=== PATIENT | female | born 1980 ===

== ENCOUNTER 2018-12-01 02:21 | Emergency (ER) | payer MEDICAID ==
[2018-12-01 02:44] VITALS: BP 160/85
[2018-12-01 03:06] LABS: Bilirubin,Urine NEG (Negative); Blood,Urine MOD (Negative); Color,Urine Yellow (Yellow); Mucus,Urine FEW /HPF; Urobilinogen,Urine < 2.0 mg/dL (<2.0); WBC,Urine > 182.0 /HPF (0.0-6.0)
[2018-12-01 03:07] LABS: HCG Qualitative,Urine Negative (Negative)
[2018-12-01] MEDS ORDERED: ZOFRAN ODT PO ONE (04:31)
[2018-12-01] MEDS ORDERED: XYLOCAINE 1% MPF 5 mL INFILTRATI ONE (04:31)
[2018-12-01] MEDS ORDERED: PYRIDIUM PO ONE (04:31)
[2018-12-01] MEDS ORDERED: IBUPROFEN PO ONE (04:31)
[2018-12-01] MEDS ORDERED: ROCEPHIN IM ONE (04:31)
--- NOTE | 2018-12-01 05:00 | Emergency Department Report ---
ED Female HPI - General Chief complaint: Urogenital-Female Stated complaint: FLANK PAIN Time Seen by Provider: 12/01/18 04:30 Source: patient Mode of arrival: Ambulatory Limitations: No Limitations - History of Present Illness Initial comments: Patient is a A0 38-year-old female with no past medical history who presents to ED with a complaint of acute onset persistent dysuria, urinary frequency and urgency, suprapubic pressure and low back pain for the last 3 days. Patient states that she's been taking [id number] remedies for dysuria with no relief. Patient denies fever, chills, nausea, vomiting, chest pain, shortness of breath, vaginal bleeding, vaginal discharge, diarrhea, cough or dysphonia or sore throat. MD Complaint: dysuria, pelvic pain, other (urinary urgency and frequency) -: Sudden, days(s) (3) Location: suprapubic, other (vaginal) Radiation: non-radiating Severity: severe Severity scale (0 -10): 7 Quality: sharp, burning Consistency: constant Improves with: none Worsens with: urination Are you Now?: No Last Menstrual Period: 11/20/18 EDC: 08/27/19 Associated Symptoms: denies other symptoms, abdominal pain, dysuria. denies: vaginal discharge, vaginal bleeding, nausea/vomiting, fever/chills, headaches, loss of appetite, hematuria, rash, seizure, shortness of breath, syncope, weakness, other - Related Data Sexually active: Yes : 6 Para: 6 A: 0 Previous Rx's Medication Instructions Recorded Last Taken Type Ibuprofen [Motrin 600 MG tab] 600 mg PO Q6H PRN #30 tablet 04/28/14 Unknown Rx traMADol [Ultram] 50 mg PO Q4HR PRN #30 tablet 04/28/14 Unknown Rx Ibuprofen [Motrin] 600 mg PO Q8H PRN #20 tablet 12/01/18 Unknown Rx Phenazopyridine [Pyridium] 200 mg PO Q8H PRN #21 tab 12/01/18 Unknown Rx Sulfamethoxazole/Trimethoprim 1 each PO Q12H #20 tablet 12/01/18 Unknown Rx [Bactrim DS TAB] Allergies Allergy/AdvReac Type Severity Reaction Status Date / Time No Known Allergies Allergy Verified 02/07/14 20:02 ED Review of Systems ROS: Stated complaint: FLANK PAIN Other details as noted in HPI Constitutional: denies: chills, fever Eyes: denies: eye pain, eye discharge, vision change ENT: denies: ear pain, throat pain Respiratory: denies: cough, shortness of breath, wheezing Cardiovascular: denies: chest pain, palpitations Endocrine: no symptoms reported Gastrointestinal: denies: abdominal pain, nausea, diarrhea Genitourinary: urgency, dysuria, frequency, other (pelvic pressure). denies: discharge Musculoskeletal: denies: back pain, joint swelling, arthralgia Skin: denies: rash, lesions Neurological: denies: headache, weakness, paresthesias Psychiatric: denies: anxiety, depression Hematological/Lymphatic: denies: easy bleeding, easy bruising ED Past Medical Hx - Past Medical History Previous Medical History?: No Hx Hypertension: No Hx Congestive Heart Failure: No Hx Diabetes: No Hx Deep Vein Thrombosis: No Hx Renal Disease: No Hx Sickle Cell Disease: No Hx Seizures: No Hx Asthma: No Hx COPD: No Hx HIV: No - Surgical History Past Surgical History?: No - Social History Smoking Status: Never Smoker Substance Use Type: None - Medications Home Medications: Home Medications Medication Instructions Recorded Confirmed Last Taken Type Ibuprofen [Motrin 600 MG tab] 600 mg PO Q6H PRN #30 tablet 04/28/14 Unknown Rx traMADol [Ultram] 50 mg PO Q4HR PRN #30 tablet 04/28/14 Unknown Rx Ibuprofen [Motrin] 600 mg PO Q8H PRN #20 tablet 12/01/18 Unknown Rx Phenazopyridine [Pyridium] 200 mg PO Q8H PRN #21 tab 12/01/18 Unknown Rx Sulfamethoxazole/Trimethoprim 1 each PO Q12H #20 tablet 12/01/18 Unknown Rx [Bactrim DS TAB] ED Physical Exam - General Limitations: No Limitations General appearance: alert, in no apparent distress - Head Head exam: Present: atraumatic, normocephalic, normal inspection - Eye Eye exam: Present: normal appearance, PERRL, EOMI. Absent: scleral icterus, conjunctival injection, nystagmus, periorbital swelling, periorbital tenderness Pupils: Present: normal accommodation - ENT ENT exam: Present: normal exam, normal orophraynx, mucous membranes moist, TM's normal bilaterally, normal external ear exam - Neck Neck exam: Present: normal inspection, full ROM - Respiratory Respiratory exam: Present: normal lung sounds bilaterally. Absent: respiratory distress, wheezes, rales, chest wall tenderness, accessory muscle use, decreased breath sounds, prolonged expiratory - Cardiovascular Cardiovascular Exam: Present: regular rate, normal rhythm, normal heart sounds. Absent: systolic murmur, diastolic murmur, rubs, gallop - GI/Abdominal GI/Abdominal exam: Present: soft, normal bowel sounds. Absent: distended, tenderness, guarding, rebound, hyperactive bowel sounds, hypoactive bowel sounds, organomegaly - Rectal Rectal exam: Present: deferred - Bi-manual exam: Present: other (deferred, patient declined) - Extremities Exam Extremities exam: Present: normal inspection, full ROM, normal capillary refill - Back Exam Back exam: Present: normal inspection, full ROM. Absent: tenderness, muscle spasm - Neurological Exam Neurological exam: Present: alert, oriented X3, CN II-XII intact, normal gait, reflexes normal - Psychiatric Psychiatric exam: Present: normal affect, normal mood - Skin Skin exam: Present: warm, dry, intact, normal color. Absent: rash ED Course Vital Signs 12/01/18 02:30 Temperature 98.4 F Pulse Rate 87 Respiratory 18 Rate Blood Pressure 160/85 O2 Sat by Pulse 99 Oximetry - Reevaluation(s) Reevaluation #1: 12/01/18 05:01 Patient is alert and oriented 3 and is not in distress. Urinalysis shows significant urinary tract infection. Patient was treated in the ED with antibiotics and pain medications and sent home on antibiotics, pain medications. Patient advised to follow-up with her primary care physician or [facility] phys ician in 7-10 days for reevaluation or return to the ED immediately if symptoms get worse. ED Medical Decision Making - Medical Decision Making Patient is alert and oriented 3 and is not in distress. Urinalysis shows significant urinary tract infection. Patient was treated in the ED with antibiotics and pain medications and sent home on antibiotics, pain medications. Patient advised to follow-up with her primary care physician or [facility] physician in 7-10 days for reevaluation or return to the ED immediately if symptoms get worse. - Differential Diagnosis acute urinary tract infection; Dysuria, Acute PID Critical care attestation.: If time is entered above; I have spent that time in minutes in the direct care of this critically ill patient, excluding procedure time. ED Disposition Clinical Impression: Acute urinary tract infection, Dysuria Disposition: TO HOME OR SELFCARE Is pt being admited?: No Does the pt Need Aspirin: No Condition: Stable Instructions: Dysuria (ED), Urinary Tract Infection in Women (ED) Additional Instructions: Take medications with food, drink plenty of fluids and follow up with your primary care physician in 7-10 days for reevaluation. Prescriptions: Sulfamethoxazole/Trimethoprim [Bactrim DS TAB] 1 each PO Q12H #20 tablet Ibuprofen [Motrin] 600 mg PO Q8H PRN #20 tablet PRN Reason: Pain Phenazopyridine [Pyridium] 200 mg PO Q8H PRN #21 tab PRN Reason: dysuria Referrals: [facility] [Outside] - 3-5 Days Time of Disposition: 04:58 Print Language: KENYAN
== END 2018-12-01 06:05 | disposition home or self-care (01) ==
LOC: ED 02:21
DX: N39.0 Urinary tract infection, site not specified (principal)
CPT/HCPCS: 81001; 81025; 96372; 99283; J0696; Q0162